=== PATIENT | male | born 1970 | race Caucasian/White ===

== ENCOUNTER 2016-11-07 17:12 | Emergency (ER) | payer OTHER ==
[~2016-11-07] VITALS: Ht 177.8 cm; Wt 99.8 kg
[~2016-11-07 17:12] MED LIST: AMOXICILLIN500 M3 PO; AUGMENTIN 875-1 EACH PO; HYDROCHLOROTHIA25 M1 PO; HYDROXYZINE HCL50 M1 PO; LISINOPRIL20 M1 PO; LORCET 5-325 M1 EACH PO; MEDROL4 M2 PO; MULTI-DAY VITA1 EACH PO; NASONEX17 GM NASB; PERCOCET 325 MG1 TA2 PO; PREDNISONE10 M2 PO; PROTONIX40 M3 PO; RANITIDINE HCL150 MG PO; SOMA250 M1 PO; VENTOLIN HFA18 GM INH; VICODIN 5-3001 EACH PO; VITAMIN B COMP1 EACH PO; VITAMIN C500 M6 PO; ZOLPIDEM TARTRA10 M1 PO
[2016-11-07] MEDS ORDERED: IBUPROFEN800 M1 PO (17:43)
[2016-11-07] MEDS ORDERED: SOMA350 M1 PO (17:43)
[2016-11-07] MEDS ORDERED: HYDROCHLOROTH12.5 M2 PO (17:43)
--- NOTE | 2016-11-07 17:44 | ED NECK/BACK PAIN COMPLAINT ---
History of Present Illness General Chief Complaint: Low Back Pain/Injury Stated Complaint: LOWER BACK PAIN Source: patient Exam Limitations: no limitations Vital Signs & Intake/Output Vital Signs & Intake/Output Vital Signs Date Time Temp Pulse Resp B/P Pulse O2 O2 Flow FiO2 Ox Delivery Rate 11/07 1833 68 148/90 11/07 1737 97.9 67 18 167/106 98 Room Air Allergies Coded Allergies: NO KNOWN ALLERGIES (05/12/16) Uncoded Allergies: HAIR COLORING FOR JOY (SWELLING AND REDNESS, HIVES 05/12/16) Reconcile Medications Amoxicillin 500 MG TABLET 1 TAB PO TID FINGER LACERATION Ascorbate Calcium (Vitamin C) 500 MG TABLET 1 TAB PO DAILY SUPPLEMENT ( Reported) Carisoprodol (SOMA) 350 MG TABLET 1 TAB PO TIDPRN spasms Carisoprodol (SOMA) 250 MG TABLET 1 TAB PO BID PRN MUSCLE SPASM Hydrochlorothiazide 25 MG TABLET 1 TAB PO DAILY BP/FLUID (Reported) Hydrochlorothiazide 12.5 MG TABLET 2 TAB PO DAILY htn Hydrochlorothiazide 25 MG TABLET 1 TAB PO DAILY htn Hydrocodone/Acetaminophen (Lorcet 5-325 MG Tablet) 5 MG-325 MG TABLET 1-2 TAB PO Q6P PRN PAIN Hydroxyzine HCl 50 MG TABLET 1 TAB PO Q6H PRN RASH/ITCH Ibuprofen 800 MG TABLET 1 TAB PO TID pain Lisinopril 20 MG TABLET 1 TAB PO DAILY BP (Reported) Lisinopril 20 MG TABLET 1 TAB PO DAILY htn Mometasone Furoate (Nasonex) 50 MCG SPRAY.PUMP 2 SPRAY NASB DAILY SINUS CONGESTION Multivitamin (Multi-Day Vitamins) 1 EACH TABLET 1 TAB PO DAILY SUPPLEMENT ( Reported) Pantoprazole Sodium (Protonix) 40 MG TABLET.DR 1 TAB PO DAILY gerd Prednisone 10 MG TABLET 0 PO DAILY allergic reaction day 1: 5 tabs po qd day 2: 4 tabs po qd day 3: 3 tabs po qd day 4: 2 tabs po qd day 5: 1 tab po qd Ranitidine (Ranitidine HCl) 150 MG TABLET 1 TAB PO BID GI (Reported) Vitamin B Complex 1 EACH CAPSULE 1 CAP PO DAILY SUPPLEMENT (Reported) Zolpidem Tartrate 10 MG TABLET 1 TAB PO QPM SLEEP (Reported) Zolpidem Tartrate (Ambien) 10 MG TABLET 1 TAB PO QPMP sleep Triage Nurses Notes Reviewed? yes Onset: Abrupt Duration: day(s): (FEW), constant, continues in ED Timing: recent history Quality/Severity: moderate, severe Location: lumbar spine Loss of Consciousness: no loss of consciousness HPI: 46-YEAR-OLD MALE COMES INTO EMERGENCY ROOM WITH COMPLAINTS OF LOW BACK PAIN HAS BEEN GOING ON FOR THE PAST FEW DAYS. Patient reports that while shoveling the other day he tweaked his lower back and felt a pull. Patient reports that he decided to do some weight lifting a couple days later and felt that the pain was getting worse. Patient was doing some squatting. Patient also reports he ran out of his blood pressure medication hydrochlorothiazide is requesting a refill on the medication. Denies any numbness tingling in his lower legs. Denies any other associated symptoms or radiation of pain. Patient also requesting refill on his Ambien. Takes it for sleep. Ran out of medication. (ARCHEL SANCHEZ) Past History Travel History Traveled to [place] past 21 day No Medical History Any Pertinent Medical History? 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 No (RACHEL SANCHEZ) Review of Systems Review of Systems Constitutional: Reports: no symptoms. Eyes: Reports: no symptoms. Ears, Nose, Throat, Mouth: Reports: no symptoms. Respiratory: Reports: no symptoms. Cardiovascular: Reports: no symptoms. Gastrointestinal/Abdominal: Reports: no symptoms. Musculoskeletal: Reports: see HPI. Skin: Reports: no symptoms. Neurological/Psychological: Reports: no symptoms. All Other Systems: Reviewed and Negative (RACHEL SANCHEZ) Physical Exam Physical Exam General Appearance: well developed/nourished, mild distress Head: atraumatic Eyes: Bilateral: PERRL, EOMI. Ears, Nose, Throat, Mouth: hearing grossly normal Neck: normal inspection, supple, full range of motion Respiratory: normal breath sounds Cardiovascular: regular rate/rhythm Gastrointestinal: soft, non-tender Back: normal inspection Extremities: normal range of motion Motor: Deficit L4 Right: No Deficit L4 Left: No Deficit L5 Right: No Deficit L5 Left: No Deficit S1 Right: No Deficit S1 Right: No Neurologic/Psych: awake, alert, oriented x 3, normal mood/affect Skin: intact, normal color, warm/dry (RACHEL SANCHEZ) Progress Differential Diagnosis: carotid dissection, cauda equina syn, herniated disc, myofascial strain, pyelo/UTI, sciatica, spinal cord inj, thoracic outlet syn Plan of Care: 11/07/2016 6:38:29 PM Patient's pain is all reproducible and lower back. Pain is worse with range of motion. No evidence of radiculopathy on exam. No urinary bowel dysfunction. No genital numbness. No weakness in the lower extremity. Normal dorsiflexion of great toe. Gross sensation intact. No saddle paresthesia. Considered things like cauda equina have a do not feel that patient's symptoms at this point in time are consistent with this diagnosis. Patient has no other symptoms that could be attributing to back pain. No abdominal pain, shortness of breath , chest pain. Patient is to follow-up with primary care doctor for recheck. If symptoms persist patient should be considered for an MRI of the lower back. Patient is to return immediately if any nausea vomiting, fever, weakness in the legs, urinary bowel dysfunction, abdominal pain, chest pain, shortness of breath. No weight loss. No night sweats. Pain is consistent with musculoskeletal pain due to the patient's symptoms mentioned above. (RACHEL SANCHEZ) Departure Departure Disposition: HOME OR SELF CARE Condition: Stable Clinical Impression Primary Impression: Strain of muscle, fascia and tendon of lower back, initial encounter Referrals: PATIENT HAS NO PRIMARY CARE DR (PCP/Family) Additional Instructions: Takes Soma, hydrochlorothiazide, and ibuprofen as prescribed. Moist heat to lower back. Return if any urinary bowel dysfunction. Return if any weakness in lower legs. Return if any other concerns worsening symptoms. Please go over all results of today's visit with your primary care doctor. Contact your primary care doctor to let them know you were here in the emergency room. There may be nonspecific findings which may not be related to your visit today here in the emergency room but may require further evaluation and chronic monitoring by your primary care doctor. If you had a laceration today the chance of foreign body always remains. You should follow-up with your primary care doctor for recheck in 3-5 days for a wound check. If you had an x-ray done there is a chance that a fracture could have been missed on initial read and you should follow-up with your primary care doctor for repeat x-rays if symptoms persist. If your blood pressure was elevated here in the emergency room please have rechecked by her primary care doctor within the next 48 hours by your primary care doctor. If you were prescribed a narcotic here in the emergency room or any type of controlled substances you're not allowed to drive while taking this medication or operate any type of heavy machinery. Narcotics can make you feel lightheaded dizziness nausea and can cause constipation. You may need to hand picker a stool softener. Thank you for choosing [facility] emergency room. Please return to the emergency room immediately if you have any other concerns worsening of symptoms. Departure Forms: Customer Survey General Discharge Information Prescriptions: Current Visit Scripts Carisoprodol (SOMA) 1 TAB PO TIDPRN #15 TAB Ibuprofen 1 TAB PO TID #30 TAB Hydrochlorothiazide 2 TAB PO DAILY #30 TAB Zolpidem Tartrate (Ambien) 1 TAB PO QPMP #10 TAB (RACHEL SANCHEZ) PA/OCEANOGRAPHY TEACHER Co-Sign Statement Statement: ED Attending supervision documentation- [] I saw and evaluated the patient. I have also reviewed all the pertinent lab results and diagnostic results. I agree with the findings and the plan of care as documented in the PA's/OCEANOGRAPHY TEACHER's documentation. [X] I have reviewed the ED Record and agree with the PA's/OCEANOGRAPHY TEACHER's documentation. [] Additions or exceptions (if any) to the PAs/OCEANOGRAPHY TEACHER's note and plan are summarized below: [] (HELLEN CAMPOS,JULIUS)
[2016-11-07] MEDS ORDERED: AMBIEN10 M1 PO (17:50)
[2016-11-07 18:33] VITALS: BP 148/90
== END 2016-11-07 18:33 ==
LOC: ERH 17:12
DX: S39.012A Strain of muscle, fascia and tendon of lower back, initial encounter (principal); X50.9XXA Other and unspecified overexertion or strenuous movements or postures, initial encounter; Y93.H1 Activity, digging, shoveling and raking
CPT/HCPCS: 96372; J1885

== ENCOUNTER 2016-12-10 18:16 | Emergency (ER) | payer OTHER ==
[~2016-12-10] VITALS: Ht 180.3 cm; Wt 97.5 kg
[~2016-12-10 18:16] MED LIST changes: +AMBIEN10 M1 PO; +HYDROCHLOROTH12.5 M2 PO; +IBUPROFEN800 M1 PO; +SOMA350 M1 PO
[2016-12-10 18:20] VITALS: BP 140/73
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
[2016-12-10] MEDS ORDERED: SOMA250 M1 PO (19:33)
[2016-12-10] MEDS ORDERED: IBUPROFEN800 M1 PO (19:33)
[2016-12-10] MEDS ORDERED: AMBIEN10 M1 PO (19:33)
[2016-12-10] MEDS ORDERED: PERCOCET 5-3251 EACH PO (19:33)
== END 2016-12-10 19:45 ==
LOC: ERH 18:16
DX: S39.012A Strain of muscle, fascia and tendon of lower back, initial encounter (principal); W18.40XA Slipping, tripping and stumbling without falling, unspecified, initial encounter; Y93.89 Activity, other specified; Y92.9 Unspecified place or not applicable
CPT/HCPCS: 96372; J1885

== ENCOUNTER 2018-02-03 14:51 | Emergency (ER) | payer OTHER ==
[~2018-02-03 14:51] MED LIST changes: +CARISOPRODOL350 M1 PO; +GABAPENTIN300 M2 PO; +PERCOCET 5-3251 EACH PO; +TIZANIDINE HCL4 M1 PO; +VALIUM5 M2 PO
[2018-02-03] MEDS ORDERED: DIAZEPAM10 M1 PO (16:27)
[2018-02-03] MEDS ORDERED: PANTOPRAZOLE SO40 M1 PO (16:27)
[2018-02-03] MEDS ORDERED: MEDROL4 M2 PO (16:27)
[2018-02-03] MEDS ORDERED: HYDROCHLOROTHIA25 M1 PO (16:27)
--- NOTE | 2018-02-03 16:31 | ED NECK/BACK PAIN COMPLAINT ---
History of Present Illness General Chief Complaint: General Adult Stated Complaint: BACK PAIN, AND MED REFILL Source: patient, old records Exam Limitations: no limitations Vital Signs & Intake/Output Vital Signs & Intake/Output Vital Signs Date Time Temp Pulse Resp B/P B/P Pulse O2 O2 Flow FiO2 Mean Ox Delivery Rate 02/03 1643 68 154/102 02/03 1632 98.7 68 16 154/102 98 Room Air 02/03 1455 97.7 85 16 192/110 98 Room Air Allergies Uncoded Allergies: IV CONSTRAST (Severe, HIVES 06/08/17) HAIR COLORING FOR JOY (SWELLING AND REDNESS, HIVES 05/12/16) Reconcile Medications Ascorbate Calcium (Vitamin C) 500 MG TABLET 1 TAB PO DAILY SUPPLEMENT ( Reported) Carisoprodol (SOMA) 250 MG TABLET 1 TAB PO BID PRN pain Carisoprodol 350 MG TABLET 1 TAB PO TIDPRN PRN pain Diazepam 10 MG TABLET 1 TAB PO TIDPRN BACK PAIN Diazepam (Valium) 5 MG TABLET 1 TAB PO TID SPASMS Diazepam (Valium) 5 MG TABLET 1 TAB PO Q6P PRN PAIN OR SPASM Diazepam (Valium) 5 MG TABLET 1 TAB PO TID PRN Muscle Spasm Gabapentin 300 MG CAPSULE 1 CAP PO TID NEUROPATHY (Reported) Hydrochlorothiazide 25 MG TABLET 1 TAB PO DAILY BP/FLUID (Reported) Hydrochlorothiazide 25 MG TABLET 1 TAB PO DAILY HTN Hydrochlorothiazide 25 MG TABLET 1 TAB PO DAILY HIGH BLOOD PRESSURE Ibuprofen 800 MG TABLET 1 TAB PO TID PRN pain Lisinopril 20 MG TABLET 1 TAB PO DAILY BP (Reported) Methylprednisolone. (Medrol) 4 MG TAB.DS.PK 1 DP PO AD BACK PAIN 6 on day 1 then reduce by one tablet daily until gone Methylprednisolone. (Medrol) 4 MG TAB.DS.PK 1 DP PO AD BACK PAIN 6 on day 1 then reduce by one tablet daily until gone Methylprednisolone. (Medrol) 4 MG TAB.DS.PK 1 DP PO AD radiculopathy 6 on day 1 then reduce by one tablet daily until gone Multivitamin (Multi-Day Vitamins) 1 EACH TABLET 1 TAB PO DAILY SUPPLEMENT ( Reported) Oxycodone HCl/Acetaminophen (Percocet 5-325 MG Tablet) 5 MG-325 MG TABLET 1-2 TAB PO Q6P PRN pain Oxycodone HCl/Acetaminophen (Percocet 5-325 MG Tablet) 5 MG-325 MG TABLET 1 TAB PO BID PRN breakthrough pain Oxycodone HCl/Acetaminophen (Percocet 5-325 MG Tablet) 5 MG-325 MG TABLET 1 TAB PO BID pain Pantoprazole Sodium 40 MG TABLET.DR 1 TAB PO DAILY GERD Pantoprazole Sodium (Protonix) 40 MG TABLET.DR 1 TAB PO DAILY GASTRITIS Pantoprazole Sodium (Protonix) 40 MG TABLET.DR 1 TAB PO DAILY gerd Prednisone 10 MG TABLET 1 TAB PO DAILY SCIATICA TAKE 3 TABS FOR 3 DAYS THEN TAKE 2 TABS FOR 3 DAYS THEN TAKE 1 TAB FOR 3 DAYS Prednisone 10 MG TABLET 1 TAB PO DAILY radiculopathy Tizanidine HCl 4 MG TABLET 1 TAB PO QPM SPASMS (Reported) Vitamin B Complex 1 EACH CAPSULE 1 CAP PO DAILY SUPPLEMENT (Reported) Zolpidem Tartrate 10 MG TABLET 1 TAB PO QPM SLEEP (Reported) Zolpidem Tartrate (Ambien) 10 MG TABLET 1 TAB PO QPMP insomnia Triage Note: PT TO ED C/O BACK PAIN AND SCIATICA PAIN. HAS HX OF THE SAME. STATES THAT VALIUM AND PREDNISONE USUALLY WORKS BEST FOR HIM. Triage Nurses Notes Reviewed? yes HPI: 47M PMH HTN, GERD, chronic left sided lower back pain presents with acute exacerbation of sciatic pain on the left side. Started when he was lifting something heavy at work. Has had chronic back issues, usually resolves with Prednisone and Valium. Ran out of his medications and is waiting for an appointment with a new PCP. Denies fall, trauma, head injury, headache, lightheadedness, chest pain, SOB, abdominal pain, diarrhea ,dysuria. No weakness or numbness of his legs. Denies incontinence, urinary retention, or saddle anesthesia. No clinical evidence of cord compression. Past History Travel History Traveled to [place] past 21 day No Medical History Any Pertinent Medical History? 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 No Review of Systems Review of Systems Constitutional: Reports: no symptoms. Eyes: Reports: no symptoms. Ears, Nose, Throat, Mouth: Reports: no symptoms. Respiratory: Reports: no symptoms. Cardiovascular: Reports: no symptoms. Gastrointestinal/Abdominal: Reports: no symptoms. Musculoskeletal: Reports: no symptoms. Skin: Reports: no symptoms. Neurological/Psychological: Reports: no symptoms. All Other Systems: Reviewed and Negative Physical Exam Physical Exam General Appearance: well developed/nourished, mild distress Head: atraumatic, normal appearance Eyes: Bilateral: normal appearance. Ears, Nose, Throat, Mouth: hearing grossly normal, moist mucous membrane Neck: normal inspection, supple, full range of motion Respiratory: normal breath sounds, no respiratory distress Cardiovascular: regular rate/rhythm Gastrointestinal: soft, non-tender Back: normal inspection, left paraspinal tenderness Extremities: normal range of motion, sensation and strength intact bilaterally Neurologic/Psych: awake, alert, oriented x 3, normal mood/affect Skin: intact, normal color, warm/dry Core Measures CVA/TIA Diagnosis: No Progress Differential Diagnosis: cauda equina syn, herniated disc, myofascial strain, pyelo/UTI, sciatica, spinal cord inj, T/L spine injury, ureterolithiasis Plan of Care: Current Medications Sig/Ciara Start time Last Medication Dose Stop Time Status Admin Amlodipine Besylate 5 MG ONCE ONE 02/03 1630 UNVr (Norvasc) 02/03 1631 No evidence of cord compression, no imaging required at this time. Will refill patient's home medications and refer to PCP and orthopedics. Departure Departure Disposition: HOME OR SELF CARE Condition: Stable Clinical Impression Primary Impression: Sciatica of left side Referrals: Patient Has No Primary Care Dr (PCP/Family) Additional Instructions: Follow up with your PCP. Return to ER if new or worsening symptoms. Departure Forms: Customer Survey General Discharge Information Prescriptions: Current Visit Scripts Hydrochlorothiazide 1 TAB PO DAILY #30 TAB Ref 3 Pantoprazole Sodium 1 TAB PO DAILY #30 TAB Ref 3 Methylprednisolone. (Medrol) 1 DP PO AD #1 DP 6 on day 1 then reduce by one tablet daily until gone Diazepam 1 TAB PO TIDPRN #20 TAB
[2018-02-03 17:20] VITALS: BP 152/94
== END 2018-02-03 17:42 ==
LOC: ERH 14:51
DX: M54.42 Lumbago with sciatica, left side (principal)
CPT/HCPCS: 96372; J1885

== ENCOUNTER 2018-04-29 15:19 | Emergency (ER) | payer OTHER ==
[~2018-04-29] VITALS: Ht 180.3 cm; Wt 93.0 kg
[~2018-04-29 15:19] MED LIST changes: +DIAZEPAM10 M1 PO; +PANTOPRAZOLE SO40 M1 PO
--- NOTE | 2018-04-29 15:25 | ED NECK/BACK PAIN COMPLAINT ---
History of Present Illness General Chief Complaint: General Adult Stated Complaint: "MY SCIATICA/LEFT KNEE ISBOTHERING ME" X3 DAYS Source: patient Exam Limitations: no limitations Vital Signs & Intake/Output Vital Signs & Intake/Output Vital Signs Date Time Temp Pulse Resp B/P B/P Pulse O2 O2 Flow FiO2 Mean Ox Delivery Rate 04/29 1533 97 Room Air 04/29 1529 97.0 67 18 162/76 98 Room Air ED Intake and Output 04/30 0000 04/29 1200 Intake Total Output Total Balance Patient 205 lb Weight Allergies Uncoded Allergies: IV CONSTRAST (Severe, HIVES 06/08/17) HAIR COLORING FOR JOY (SWELLING AND REDNESS, HIVES 05/12/16) Reconcile Medications Ascorbate Calcium (Vitamin C) 500 MG TABLET 1 TAB PO DAILY SUPPLEMENT ( Reported) Carisoprodol (SOMA) 250 MG TABLET 1 TAB PO BID PRN pain Carisoprodol 350 MG TABLET 1 TAB PO TIDPRN PRN pain Diazepam 10 MG TABLET 1 TAB PO TIDPRN BACK PAIN Diazepam (Valium) 5 MG TABLET 1 TAB PO TID SPASMS Diazepam (Valium) 5 MG TABLET 1 TAB PO Q6P PRN PAIN OR SPASM Diazepam (Valium) 5 MG TABLET 1 TAB PO BIDP PRN MUSCLE RELAXOR Diazepam (Valium) 5 MG TABLET 1 TAB PO TID PRN Muscle Spasm Gabapentin 300 MG CAPSULE 1 CAP PO TID NEUROPATHY (Reported) Hydrochlorothiazide 25 MG TABLET 1 TAB PO DAILY BP/FLUID (Reported) Hydrochlorothiazide 25 MG TABLET 1 TAB PO DAILY HTN Hydrochlorothiazide 25 MG TABLET 1 TAB PO DAILY HIGH BLOOD PRESSURE Hydrochlorothiazide 25 MG TABLET 1 TAB PO DAILY HTN Ibuprofen 800 MG TABLET 1 TAB PO TID PRN pain Ibuprofen 800 MG TABLET 1 TAB PO TID PAIN Lisinopril 20 MG TABLET 1 TAB PO DAILY BP (Reported) Methylprednisolone. (Medrol) 4 MG TAB.DS.PK 1 DP PO AD BACK PAIN 6 on day 1 then reduce by one tablet daily until gone Methylprednisolone. (Medrol) 4 MG TAB.DS.PK 1 DP PO AD BACK PAIN 6 on day 1 then reduce by one tablet daily until gone Methylprednisolone. (Medrol) 4 MG TAB.DS.PK 1 DP PO AD radiculopathy 6 on day 1 then reduce by one tablet daily until gone Multivitamin (Multi-Day Vitamins) 1 EACH TABLET 1 TAB PO DAILY SUPPLEMENT ( Reported) Oxycodone HCl/Acetaminophen (Percocet 5-325 MG Tablet) 5 MG-325 MG TABLET 1-2 TAB PO Q6P PRN pain Oxycodone HCl/Acetaminophen (Percocet 5-325 MG Tablet) 5 MG-325 MG TABLET 1 TAB PO BID PRN breakthrough pain Oxycodone HCl/Acetaminophen (Percocet 5-325 MG Tablet) 5 MG-325 MG TABLET 1 TAB PO BID pain Pantoprazole Sodium 40 MG TABLET.DR 1 TAB PO DAILY GERD Pantoprazole Sodium (Protonix) 40 MG TABLET.DR 1 TAB PO DAILY GASTRITIS Pantoprazole Sodium (Protonix) 40 MG TABLET.DR 1 TAB PO DAILY gerd Pantoprazole Sodium (Protonix) 40 MG TABLET.DR 1 TAB PO DAILY GERD Prednisone 10 MG TABLET 1 TAB PO DAILY SCIATICA TAKE 3 TABS FOR 3 DAYS THEN TAKE 2 TABS FOR 3 DAYS THEN TAKE 1 TAB FOR 3 DAYS Prednisone 10 MG TABLET 1 TAB PO DAILY radiculopathy Tizanidine HCl 4 MG TABLET 1 TAB PO QPM SPASMS (Reported) Vitamin B Complex 1 EACH CAPSULE 1 CAP PO DAILY SUPPLEMENT (Reported) Zolpidem Tartrate 10 MG TABLET 1 TAB PO QPM SLEEP (Reported) Zolpidem Tartrate (Ambien) 10 MG TABLET 1 TAB PO QPMP insomnia Triage Nurses Notes Reviewed? 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 Patient also states that he has known left knee ligament damage where he is trying to get an MRI Patient is unrelieved with ibuprofen denies any centralized back pain neck pain hip or ankle pain. Denies any extremity Denies any saddle paresthesia or bowel bladder continence is complaining of left lower leg chronic paresthesia no new changes States steroids AND VALIUM have helped him in the past (Brittany STRICKLAND,Faustino) Past History Travel History Traveled to [place] past 21 day No Medical History Any Pertinent Medical History? see below for history Neurological: NONE EENT: NONE Cardiovascular: hypertension Respiratory: NONE Gastrointestinal: NONE Hepatic: NONE Renal: NONE Musculoskeletal: disk herniation, L KNEE TORN MCL Psychiatric: NONE Endocrine: NONE Blood Disorders: NONE Cancer(s): NONE [employer]/Reproductive: NONE Tetanus Vaccine: 07/25/16 Surgical History Surgical History: non-contributory Psychosocial History What is your primary language [place]ian Family History Hx Contributory? No (Faustino Lunsford) Review of Systems Review of Systems Constitutional: Reports: no symptoms. Eyes: Reports: no symptoms. Ears, Nose, Throat, Mouth: Reports: no symptoms. Respiratory: Reports: no symptoms. Cardiovascular: Reports: no symptoms. Gastrointestinal/Abdominal: Reports: no symptoms. Musculoskeletal: Reports: see HPI, back pain, joint pain. Skin: Reports: no symptoms. Neurological/Psychological: Reports: see HPI. All Other Systems: Reviewed and Negative (Faustino Lunsford) Physical Exam Physical Exam General Appearance: no apparent distress, alert, comfortable Head: atraumatic Eyes: Bilateral: normal appearance. Ears, Nose, Throat, Mouth: moist mucous membrane Neck: normal inspection Respiratory: no respiratory distress Gastrointestinal: normal bowel sounds, non-tender Skin: intact, normal color, warm/dry Comments: Back no central spinous tenderness decreased active range of motion left lateral point tenderness upon palpation Bilateral lower extremity decreased generally dermatome sensation to the left compared to the right DTRs myotomes intact LEFT SLR- POSITIVE FOR PAIN AT 60 DEGREES Left hip normal inspection nontender full active range of motion left knee normal inspection full active range of motion child was point tenderness noted left ankle normal inspection nontender Core Measures CVA/TIA Diagnosis: No (Faustino Lunsford) Progress Differential Diagnosis: C spine injury, carotid dissection, cauda equina syn, herniated disc, myofascial strain, pyelo/UTI, sciatica, spinal cord inj, thoracic outlet syn, T/L spine injury, ureterolithiasis Plan of Care: Orders Procedure Date/time Status XRY-KNEE, LEFT 04/29 1534 Active No concerns of cauda equina syndrome discitis or spinal abscess patient is requesting medication refills of his hydrochlorothiazide and Protonix X-rays show no acute osseous injury or fracture patient has significant tricompartmental syndrome Diagnostic Imaging: Viewed by Me: Radiology Read. Radiology Impression: no acute abnormality Comments: PATIENT: PLATKO,LISANDRO R PRESENT AGE: 47 PATIENT ACCOUNT NO: [id number] : 70 LOCATION: [facility] ORDERING PHYSICIAN: Faustino STRICKLAND SERVICE DATE: 04/29/18 EXAM TYPE: RAD - XRY-KNEE, LEFT EXAMINATION: XR KNEE, LEFT CLINICAL INFORMATION: Left knee pain. COMPARISON: None TECHNIQUE: Four views of the left knee. FINDINGS: No fracture or dislocation. At least moderate medial tibiofemoral compartment cartilage space narrowing. Tricompartmental osteophyte formation. Bipartite patella, likely chronic. No large knee joint effusion. 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 DICTATED BY: Reymundo Alberts MD DATE/TIME DICTATED:04/29/181554 ENTERPRISE SECURITY ARCHITECT:HERBERT DATE/TIME TRANSCRIBED:04/29/181554 (Faustino Lunsford) Departure Departure Disposition: HOME OR SELF CARE Condition: Stable Clinical Impression Primary Impression: Low back pain Secondary Impressions: Left knee pain, Medication refill, Sciatica Referrals: Patient Has No Primary Care Dr (PCP/Family) Additional Instructions: As discussed continue [id number] Motrin or Advil as directed. Begin the prescription of Medrol Dosepak for inflammation and Valium for your symptoms, please follow-up with established primary care doctor's appointment. If symptoms worsen or IF YOU develop any new concerning symptom return to the emergency room. BEGIN Icing 20 minutes every 2 hours Begin the prescription of hydrochlorothiazide and Protonix Departure Forms: Customer Survey General Discharge Information Prescriptions: Current Visit Scripts Hydrochlorothiazide 1 TAB PO DAILY #30 TAB Pantoprazole Sodium (Protonix) 1 TAB PO DAILY #30 TAB Ibuprofen 1 TAB PO TID #30 TAB Diazepam (Valium) 1 TAB PO BIDP PRN MUSCLE RELAXOR #10 TAB (Faustino Lunsford) PA/HYDRAMATIC SPECIALIST Co-Sign Statement Statement: ED Attending supervision documentation- [] I saw and evaluated the patient. I have also reviewed all the pertinent lab results and diagnostic results. I agree with the findings and the plan of care as documented in the PA's/HYDRAMATIC SPECIALIST's documentation. [X] I have reviewed the ED Record and agree with the PA's/HYDRAMATIC SPECIALIST's documentation. [] Additions or exceptions (if any) to the PAs/HYDRAMATIC SPECIALIST's note and plan are summarized below: [] (Zuleyka CAMPOS,[facility])
[2018-04-29 15:29] VITALS: BP 162/76
--- NOTE | 2018-04-29 16:07 | RADIOLOGY REPORT ---
EXAMINATION: XR KNEE, LEFT CLINICAL INFORMATION: Left knee pain. COMPARISON: None TECHNIQUE: Four views of the left knee. FINDINGS: No fracture or dislocation. At least moderate medial tibiofemoral compartment cartilage space narrowing. Tricompartmental osteophyte formation. Bipartite patella, likely chronic. No large knee joint effusion. 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
[2018-04-29] MEDS ORDERED: PROTONIX40 M3 PO (16:08)
[2018-04-29] MEDS ORDERED: IBUPROFEN800 M1 PO (16:08)
[2018-04-29] MEDS ORDERED: HYDROCHLOROTHIA25 M1 PO (16:08)
[2018-04-29] MEDS ORDERED: VALIUM5 M2 PO (16:09)
== END 2018-04-29 16:16 ==
LOC: ERH 15:19
DX: M54.42 Lumbago with sciatica, left side (principal); M25.562 Pain in left knee; Z76.0 Encounter for issue of repeat prescription
CPT/HCPCS: 73560-LT

== ENCOUNTER 2018-06-26 16:56 | Emergency (ER) | payer OTHER ==
[~2018-06-26] VITALS: Ht 180.3 cm; Wt 99.8 kg
[2018-06-26] MEDS ORDERED: VALIUM5 M2 PO (18:24)
[2018-06-26] MEDS ORDERED: MEDROL4 M2 PO (18:24)
[2018-06-26] MEDS ORDERED: HYDROCHLOROTHIA25 M1 PO (18:24)
--- NOTE | 2018-06-26 18:25 | ED NECK/BACK PAIN COMPLAINT ---
History of Present Illness General Chief Complaint: Low Back Pain/Injury Stated Complaint: BACK PAIN, SCIATICA RADIATING DOWN BOTH LEGS Source: patient Exam Limitations: no limitations Vital Signs & Intake/Output Vital Signs & Intake/Output Vital Signs Date Time Temp Pulse Resp B/P B/P Pulse O2 O2 Flow FiO2 Mean Ox Delivery Rate 06/26 1815 Room Air 06/26 1720 98.3 97 20 181/122 98 Room Air Allergies Uncoded Allergies: IV CONSTRAST (Severe, HIVES 06/08/17) HAIR COLORING FOR JOY (SWELLING AND REDNESS, HIVES 05/12/16) Reconcile Medications Ascorbate Calcium (Vitamin C) 500 MG TABLET 1 TAB PO DAILY SUPPLEMENT ( Reported) Carisoprodol (SOMA) 250 MG TABLET 1 TAB PO BID PRN pain Carisoprodol 350 MG TABLET 1 TAB PO TIDPRN PRN pain Diazepam 10 MG TABLET 1 TAB PO TIDPRN BACK PAIN Diazepam (Valium) 5 MG TABLET 1 TAB PO BIDP PRN MUSCLE SPASM Diazepam (Valium) 5 MG TABLET 1 TAB PO TID SPASMS Diazepam (Valium) 5 MG TABLET 1 TAB PO Q6P PRN PAIN OR SPASM Diazepam (Valium) 5 MG TABLET 1 TAB PO BIDP PRN MUSCLE RELAXOR Diazepam (Valium) 5 MG TABLET 1 TAB PO TID PRN Muscle Spasm Gabapentin 300 MG CAPSULE 1 CAP PO TID NEUROPATHY (Reported) Hydrochlorothiazide 25 MG TABLET 1 TAB PO DAILY BP/FLUID (Reported) Hydrochlorothiazide 25 MG TABLET 1 TAB PO DAILY HTN Hydrochlorothiazide 25 MG TABLET 1 TAB PO DAILY HTN Hydrochlorothiazide 25 MG TABLET 1 TAB PO DAILY HIGH BLOOD PRESSURE Hydrochlorothiazide 25 MG TABLET 1 TAB PO DAILY HTN Ibuprofen 800 MG TABLET 1 TAB PO TID PRN pain Ibuprofen 800 MG TABLET 1 TAB PO TID PAIN Lisinopril 20 MG TABLET 1 TAB PO DAILY BP (Reported) Methylprednisolone. (Medrol) 4 MG TAB.DS.PK 1 DP PO AD BACK PAIN 6 on day 1 then reduce by one tablet daily until gone Methylprednisolone. (Medrol) 4 MG TAB.DS.PK 1 DP PO AD SCIATICA 6 on day 1 then reduce by one tablet daily until gone Methylprednisolone. (Medrol) 4 MG TAB.DS.PK 1 DP PO AD BACK PAIN 6 on day 1 then reduce by one tablet daily until gone Methylprednisolone. (Medrol) 4 MG TAB.DS.PK 1 DP PO AD radiculopathy 6 on day 1 then reduce by one tablet daily until gone Multivitamin (Multi-Day Vitamins) 1 EACH TABLET 1 TAB PO DAILY SUPPLEMENT ( Reported) Oxycodone HCl/Acetaminophen (Percocet 5-325 MG Tablet) 5 MG-325 MG TABLET 1-2 TAB PO Q6P PRN pain Oxycodone HCl/Acetaminophen (Percocet 5-325 MG Tablet) 5 MG-325 MG TABLET 1 TAB PO BID PRN breakthrough pain Oxycodone HCl/Acetaminophen (Percocet 5-325 MG Tablet) 5 MG-325 MG TABLET 1 TAB PO BID pain Pantoprazole Sodium 40 MG TABLET.DR 1 TAB PO DAILY GERD Pantoprazole Sodium (Protonix) 40 MG TABLET.DR 1 TAB PO DAILY GASTRITIS Pantoprazole Sodium (Protonix) 40 MG TABLET.DR 1 TAB PO DAILY gerd Pantoprazole Sodium (Protonix) 40 MG TABLET.DR 1 TAB PO DAILY GERD Prednisone 10 MG TABLET 1 TAB PO DAILY SCIATICA TAKE 3 TABS FOR 3 DAYS THEN TAKE 2 TABS FOR 3 DAYS THEN TAKE 1 TAB FOR 3 DAYS Prednisone 10 MG TABLET 1 TAB PO DAILY radiculopathy Tizanidine HCl 4 MG TABLET 1 TAB PO QPM SPASMS (Reported) Vitamin B Complex 1 EACH CAPSULE 1 CAP PO DAILY SUPPLEMENT (Reported) Zolpidem Tartrate 10 MG TABLET 1 TAB PO QPM SLEEP (Reported) Zolpidem Tartrate (Ambien) 10 MG TABLET 1 TAB PO QPMP insomnia Triage Note: PT HERE WITH C/O SIATICA PAIN. 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 PT STATES THAT THAT USUALLY THEY GIVE HIM VALIUM AND PREDNISONE AND IT HELPS. Triage Nurses Notes Reviewed? yes Onset: Abrupt Duration: day(s): (1), constant, continues in ED, getting worse Timing: recent history Quality/Severity: moderate, radiation Location: lumbar spine, paraspinous muscles Radiation: buttocks, upper legs Context: turning/bending Method of Injury: twisted Loss of Consciousness: no loss of consciousness HPI: 47-year-old male history of low back pain presents for evaluation of worsening pain in his lower back. 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 He reports that he gradually noticed worsening pain in the lower back. The pain is located on both sides of the lower back radiates into the bilateral upper buttocks and upper legs. The pain is worse with movement or prolonged sitting or standing. He reports some numbness and tingling radiating into both legs. No bowel or bladder dysfunction no abdominal pain fever or history of cancer or IV drug use. He is not taking any medicine for this. He reports he has had similar symptoms multiple times and reports usually gets better with Valium and prednisone. Past History Travel History Traveled to [place] past 21 day No Medical History Any Pertinent Medical History? 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 No Review of Systems Review of Systems Constitutional: Reports: no symptoms. Eyes: Reports: no symptoms. Ears, Nose, Throat, Mouth: Reports: no symptoms. Respiratory: Reports: no symptoms. Cardiovascular: Reports: no symptoms. Gastrointestinal/Abdominal: Reports: no symptoms. Musculoskeletal: Reports: see HPI, back pain, muscle pain, muscle stiffness. Skin: Reports: no symptoms. Neurological/Psychological: Reports: paresthesia. All Other Systems: Reviewed and Negative Physical Exam Physical Exam General Appearance: well developed/nourished, no apparent distress, alert, awake Head: atraumatic, normal appearance Eyes: Bilateral: normal appearance, PERRL, EOMI. Ears, Nose, Throat, Mouth: moist mucous membrane Neck: normal inspection, supple, full range of motion Respiratory: normal breath sounds, chest non-tender, no respiratory distress, lungs clear Cardiovascular: regular rate/rhythm, normal peripheral pulses Peripheral Pulses: 2+ tibialis posterior (R), 2+ tibialis posterior (L), 2+ dorsalis pedis (R), 2+ dorsalis pedis (L) Gastrointestinal: soft, non-tender Back: normal inspection, normal range of motion, there is tendenesst o the bilateral lumbar parspinousm muscles. no midline pain no burinsdg swelling or abrasions. no step offs or deformities Extremities: non-tender, normal range of motion Straight Leg Raising: Right: Pain at ____ degrees (30). Left: Pain at ____ degrees (30). Sensory: Medial Le: L4R, L4L. Top of Foot: 2: L5R, L5L. Sole of Foot: 2: SIR, ALE. Motor: Deficit L4 Right: No Deficit L4 Left: No Deficit L5 Right: No Deficit L5 Left: No Deficit S1 Right: No Deficit S1 Right: No DTR: Deficit L4 Left: No Deficit L4 Right: No Deficit S1 Left: No Deficit S1 Right: No Patellar: 2: L4 Right, L4 Left. Neurologic/Psych: no motor/sensory deficits, awake, alert, oriented x 3, normal gait Skin: intact, normal color, warm/dry Core Measures CVA/TIA Diagnosis: No Progress Differential Diagnosis: cauda equina syn, herniated disc, myofascial strain, pyelo/UTI, sciatica, spinal cord inj, T/L spine injury, ureterolithiasis, piriformis syndrome Plan of Care: Patient is here for evaluation of pain in his lower back. He has a history of similar symptoms. On exam he has bilateral paraspinal tenderness and positive straight leg raises. He reports in the past he has been treated with prednisone and Valium with good effect. There is no bony point tenderness or trauma to suggest fracture. Patient will be given a prescription for Medrol Dosepak and Valium to go home with. Advised to follow-up with his primary care doctor. Advised he may need imaging in the future as well as physical therapy. Discussed return precautions in detail patient agrees the plan Departure Departure Disposition: HOME OR SELF CARE Condition: Stable Clinical Impression Primary Impression: Sciatica Qualifiers: Laterality: bilateral Qualified Codes: M54.31 - Sciatica, right side; M54.32 - Sciatica, left side Referrals: Patient Has No Primary Care Dr (PCP/Family) Additional Instructions: REST AVOID EXCESSIVE physical activity heavy lifting or bending. Take Medrol Dosepak as directed for the full course. Valium as needed for pain. Also use Tylenol and ibuprofen. Need to see a primary care doctor. Need to have your blood pressure rechecked. Monitor your symptoms return with any concerns Departure Forms: Customer Survey General Discharge Information Prescriptions: Current Visit Scripts Hydrochlorothiazide 1 TAB PO DAILY #30 TAB Methylprednisolone. (Medrol) 1 DP PO AD #1 DP 6 on day 1 then reduce by one tablet daily until gone Diazepam (Valium) 1 TAB PO BIDP PRN MUSCLE SPASM #10 TAB
[2018-06-26 18:26] VITALS: BP 186/98
== END 2018-06-26 18:36 ==
LOC: ERH 16:56
DX: M54.41 Lumbago with sciatica, right side (principal); M54.42 Lumbago with sciatica, left side
CPT/HCPCS: J3360